=== PATIENT | male | born 1950 | race African-American/Black ===

== ENCOUNTER 2017-01-08 09:00 | Outpatient (RCR) | payer OTHER ==
[~2017-01-08 09:00] MED LIST: COLACE 100100 MG/CAP PO; DITROPAN XL10 MG PO; GLUCOPHAGE500 MG/TAB PO; LIPITOR20 MG PO; PLAVIX 75MG TAB75 MG PO; PROTONIX20 MG PO; ZETIA 10MG TAB10 MG PO; [UNRECOGNIZED DRUG - OTHER] PO
== END 2017-03-08 13:12 | disposition home or self-care (01) ==
LOC: WSPT 09:00
DX: M25.512 Pain in left shoulder (principal)
CPT/HCPCS: G8984-GP; G8985-GP; G8986-GP